=== PATIENT | male | born 1940 | race Caucasian/White ===

== ENCOUNTER 2017-05-19 21:41 | Inpatient (IN) | payer OTHER ==
[~2017-05-19] VITALS: Ht 172.7 cm; Wt 112.9 kg
--- NOTE | 2017-05-19 21:50 | NUR ---
PT TO ROOM9 BIBA FROM [facility] FOR C/O LOWER ABD PAIN 7/10 CONSTANT, NAUSEA x3HR. PT ARRIVED AAOx3, LAST BM 2 DAYS AGO WNL, PT DENIES CHEST PAIN,SOB, DENIES V/D,URINARY S/S. PT AFEBRILE. HX OF ALS,GI OBSTRACTION. MD RADHA AT BEDSIDE FOR PT EVAL.
--- NOTE | 2017-05-19 22:08 | ED GI/GU/ABDOMINAL COMPLAINT ---
History of Present Illness General Chief Complaint: Abdominal Pain/Flank Pain Stated Complaint: BIBA FOR ABD PAIN Source: patient, old records Exam Limitations: no limitations Vital Signs & Intake/Output Vital Signs & Intake/Output Vital Signs Date Time Temp Pulse Resp B/P B/P Pulse O2 O2 Flow FiO2 Mean Ox Delivery Rate 05/20 1425 97.9 92 20 152/90 97 05/20 1403 98.7 95 20 139/78 07 0630 97.8 79 20 140/88 93 Room Air 05/20 0219 98.1 73 20 146/88 94 Room Air 05/20 0147 97.7 72 18 141/75 95 Room Air 05/19 2220 95 Room Air 05/19 2149 96.8 69 18 192/77 95 Room Air ED Intake and Output 05/20 0000 05/19 1200 Intake Total Output Total Balance Patient 250 lb Weight Weight Reported by Patient Measurement Method Allergies Coded Allergies: No Known Allergies (05/20/17) Reconcile Medications Bisacodyl (Dulcolax) 10 MG SUPP.RECT 1 SUP RC DAILY PRN CONSTIPATION ( Reported) Dextran 70/Hypromellose (Artificial Tears) 1 EACH DROPERETTE 1 DROP DAILY PRN DRY EYE (Reported) Dextromethorphan HBr (Robitussin Pediatric Cough) 7.5 MG/5 ML SYRUP 10 ML PO DAILY PRN COUGH (Reported) Magnesium Hydroxide (Milk Of Magnesia) 400 MG/5 ML ORAL.SUSP 30 ML PO Q3D PRN CONSTIPATION (Reported) Mometasone Furoate (Nasonex) 50 MCG SPRAY.PUMP 1 SPRAY NASB DAILY PRN CONGESTION (Reported) Triage Note: PT TO ROOM9 BIBA FROM [facility] FOR C/O LOWER ABD PAIN 7/10 CONSTANT, NAUSEA x3HR. PT ARRIVED AAOx3, LAST BM 2 DAYS AGO WNL, PT DENIES CHEST PAIN,SOB, DENIES V/D,URINARY S/S. PT AFEBRILE. HX OF ALS,GI OBSTRACTION. MD RADHA AT BEDSIDE FOR PT EVAL. Triage Nurses Notes Reviewed? yes Onset: Abrupt Duration: hour(s):, constant, changing over time, continues in ED, getting worse Quality/Severity: sharpness, severe Location: periumbilical Radiation: no radiation Activities at Onset: rest HPI: Patient presents for evaluation of a severe periumbilical abdominal pain that began abruptly 3-4 hours prior to arrival while watching TV at home. Patient states he has had prior episodes of this pain secondary to "a blockage". He denies any associated vomiting or diarrhea but states he hasn't had a bowel movement in 2 days and cannot recall passing flatus. Past History Travel History Traveled to [place] past 21 day No Medical History Any Pertinent Medical History? see below for history Neurological: AMYOTROPHIC LAT SCLEROSIS Gastrointestinal: hiatal hernia, BOWEL OBSTRACTION Renal: urinary incontinence Surgical History Surgical History: non-contributory Psychosocial History What is your primary language [place] Tobacco Use: Never used Family History Hx Contributory? No Review of Systems Review of Systems Constitutional: Reports: no symptoms. EENTM: Reports: no symptoms. Respiratory: Reports: no symptoms. Cardiovascular: Reports: no symptoms. GI: Reports: see HPI. Genitourinary: Reports: no symptoms. Musculoskeletal: Reports: no symptoms. Skin: Reports: no symptoms. Neurological/Psychological: Reports: no symptoms. Hematologic/Endocrine: Reports: no symptoms. Immunologic/Allergic: Reports: no symptoms. All Other Systems: Reviewed and Negative Physical Exam Physical Exam Gastrointestinal: see below Comments: Gen.: Well-nourished, well-developed, no acute respiratory distress. Head: Normocephalic, atraumatic. Eyes: Normal inspection bilaterally Ears: Normal inspection bilaterally Nose: Normal inspection Throat/mouth : Moist mucosa Neck: Supple, full range of motion, no goiter Heart: Regular rate and rhythm, no murmurs rubs or gallops Lungs: Clear to auscultation bilaterally with normal air entry Chest: Nontender Back: Normal range of motion Abdomen: Soft, periumbilical tenderness, diffuse tympany, distended, decreased bowel sounds Extremities: Increased range of motion secondary to ALS Neurologic: Cranial nerves grossly intact, speech is clear Skin: warm and dry Psychiatric: Calm, cooperative, no apparent delusions or hallucinations Core Measures ACS in differential dx? No Severe Sepsis Present: No Septic Shock Present: No Progress Differential Diagnosis: kristopher bryant Plan of Care: Orders Procedure Date/time Status Nothing by Mouth 05/20 B Active Turn and Reposition 05/20 309 Active Skin Integrity Protocol 05/20 309 Active Vital Signs 05/20 244 Active Teach/Educate 05/20 244 Active Pain Treatment and Response 05/20 244 Active Nutritional Intake, Monitor 07/02 0244 Active Isolation 07/02 0244 Active Intake & Output 05/20 0244 Active Patient Care Conference 05/20 0244 Active Activity/Ambulation 05/20 0244 Active Pathway - chart 05/20 0114 Active NGT 05/20 0045 Active Patient Data 05/20 0041 Active Admit to inpatient 05/20 0009 Active VTE Mechanical Prophylaxis 05/20 UNK Active Vital Signs 05/20 UNK Active Intake & Output 05/20 UNK Active Activity/Ambulation 05/20 UNK Active MISSING MEDICATION FORM 05/20 UNK Active URINALYSIS 05/19 2208 Complete LIPASE 05/19 2208 Complete COMPREHENSIVE METABOLIC PANEL 05/19 2208 Complete CBC WITHOUT DIFFERENTIAL 05/19 2208 Complete EKG 05/19 2142 Active Current Medications Sig/Radha Start time Last Medication Dose Stop Time Status Admin Metoprolol Tartrate 25 MG BID 05/20 1139 AC 05/20 (Lopressor) 1403 Fenofibrate 145 MG DAILY 05/20 1000 AC 05/20 (Tricor) 1359 Phenol 2 SPRAY Q2P PRN 05/20 1000 AC 05/20 (Chloraseptic 1409 (Phenaseptic) Juliaetta) Oxcarbazepine 150 MG 0800 05/20 0800 AC 05/20 (Trileptal 150MG Tab) 1359 Heparin Sodium 5,000 UNIT Q8 05/20 0600 AC 05/20 (Porcine) 1403 Dextrose/Sodium 1,000 ML .[id number] 05/20 0115 AC 05/20 Chloride 1613 (D5W-1/2 Normal Saline 1000ML) Morphine Sulfate 4 MG Q4 HRS NEEDED PRN 05/20 0115 AC 05/20 (Morphine) 0705 Ondansetron HCl 4 MG Q8P PRN 05/20 0115 AC (Zofran) Laboratory Tests 05/20/17 0125: Urine Color YEL, Urine Clarity CLEAR, Urine pH 6.0, Ur Specific [place] 1.010, Urine Protein NEG, Urine Ketones NEG, Urine Nitrite NEG, Urine Bilirubin NEG, Urine Urobilinogen 0.2, Ur Leukocyte Esterase NEG, Ur Microscopic EXAM NOT REQUIRED, Urine Hemoglobin NEG, Urine Glucose NEG 05/19/17 2210: Anion Gap 11, Estimated GFR > 60, BUN/Creatinine Ratio 21.1, Glucose 173 H, Calcium 9.5, Total Bilirubin 0.5, AST 23, ALT 34, Alkaline Phosphatase 42, Total Protein 6.8, Albumin 4.4, Globulin 2.4, Albumin/Globulin Ratio 1.8, Lipase 96, CBC w Diff NO MAN DIFF REQ, RBC 5.04, MCV 90.9, MCH 30.3, RDW 15.0 H, MPV 10.0, Gran % 81.0 H, Lymphocytes % 14.2 L, Monocytes % 3.5, Eosinophils % 1.0, Basophils % 0.3, Absolute Granulocytes 5.8, Absolute Lymphocytes 1.0 L, Absolute Monocytes 0.3, Absolute Eosinophils 0.1, Absolute Basophils 0, PUBS MCHC 33.3 Diagnostic Imaging: Discussed w/RAD: Radiology Read, CT Scan. Radiology Impression: PATIENT: CRISTINO DELGADO PRESENT AGE: 77 PATIENT ACCOUNT NO: [id number] : 40 LOCATION: [facility] ORDERING PHYSICIAN: YARA GARCIA MD SERVICE DATE: 05/19/17 EXAM TYPE: CAT - CT ABD & PELVIS W IV CONTRAST EXAMINATION: CT ABDOMEN AND PELVIS WITH CONTRAST CLINICAL INFORMATION: Evaluate for bowel obstruction COMPARISON: Abdominal film same day TECHNIQUE: Multidetector volumetric imaging was performed of the abdomen and pelvis before and after the IV administration of 80 mL of Omnipaque 300 intravenous contrast. Sagittal and coronal reformatted images were obtained on the technologist's workstation. FINDINGS: Lung bases are grossly clear. Upper abdomen The liver and spleen are felt to be within normal limits. Kidneys are in the nephrographic phase. Probable cyst left kidney. The pancreas is within normal limits. Adrenal glands are normal. Aorta is calcified but not aneurysmal. There is no bulky adenopathy seen here. There is dilatation of proximal small bowel. This appears to be jejunum. Some mild mesenteric fluid associated. The duodenum is nondilated. The more distal ileum is decompressed. There is no mass identified here. No free fluid in the deep pelvis. There is some air and stool outlining large bowel. No adenopathy. IMPRESSION: Exam does demonstrate dilated proximal to mid small bowel. Findings may well suggest an evolving obstruction. As described more proximal jejunum and duodenum are nondilated and the distal small bowel is nondilated. Therefore an element of closed loop cannot be excluded. DICTATED BY: YARA HERNANDEZ MD DATE/TIME DICTATED:05/19/173 [employer] DEPUTY DIRECTOR:REBECCA DATE/TIME TRANSCRIBED:05/19/172340 CONFIDENTIAL, DO NOT COPY WITHOUT APPROPRIATE AUTHORIZATION. <Electronically signed in Other Vendor System> SIGNED BY: YARA HERNANDEZ MD 05/19/17 5537 Initial ED EKG: NSR, rate (72), nonspecific ST T wave chg, LAFB Comments: 05/20/2017 12:06:37 AM patient's case discussed with Dr. Gonzalez. Patient to be admitted for small bowel obstruction. Surgical PA paged. Departure Departure Disposition: HOME OR SELF CARE Condition: Stable Clinical Impression Primary Impression: Small bowel obstruction Referrals: LUCERO HUSTON,DONI Hamilton (PCP/Family) Departure Forms: Customer Survey General Discharge Information Admission Note Spoke With: SALOME HUSTON,LINDA Khalil Documentation of Exam: Documentation of any treatments & extenuating circumstances including Concerns Regarding Discharge (functional status, medication knowledge or non-compliance, living conditions, etc.) that warrant an admission rather than observation: Patient has a small bowel obstruction placing him at high risk of abdominal pain , vomiting, bowel perforation, peritonitis, sepsis and mortality. Patient has a prior history of similar small bowel obstructions secondary to prior abdominal surgery. I didn't feel he is a good candidate for outpatient management given the possible risks. I feel he now requires hospitalization for close clinical monitoring of abdominal exam and vital signs.
--- NOTE | 2017-05-19 22:18 | NUR ---
BLOOD DRAWN AND SENT TO LAB-[facility],URIAH,KEVIN,CABRERA, PT MEDICATED WITH MORPHINE PER EMAR FOR ABD PAIN 05/28. NS INFUSING PER EMAR. EKG DONE BY LION WRAY. PT SENT TO RAD BY RONNIE.
[2017-05-19 22:21] LABS: ABSOLUTE BASOPHIL COUNT 0 /CUMM (0.0-0.2); ABSOLUTE EOSINOPHIL COUNT 0.1 /CUMM (0.0-0.7); ABSOLUTE GRANULOCYTE CT 5.8 /CUMM (1.4-6.5); ABSOLUTE MONOCYTE COUNT 0.3 /CUMM (0.10-0.60); BASOPHIL % 0.3 % (0.0-2.0); HEMATOCRIT 45.8 % (42-52); MEAN CORPUSCULAR HGB 30.3 PG (27.0-31.0); MEAN CORPUSCULAR HGB CONC 33.3 G/DL (33.0-37.0); MEAN CORPUSCULAR VOLUME 90.9 FL (80.0-94.0); PLATELET COUNT 167 /CUMM (130-400); RED BLOOD CELL CT 5.04 /CUMM (4.70-6.10); WHITE BLOOD CELL COUNT 7.1 /CUMM (4.8-10.8)
--- NOTE | 2017-05-19 23:00 | RADIOLOGY REPORT ---
EXAMINATION: XR ABDOMEN MULTIPLE VIEWS CLINICAL INDICATION: Distention COMPARISON: None TECHNIQUE: 3 views are submitted FINDINGS: Cannot exclude free air. The patient's hand is overlying the right hemidiaphragm. There is dilatation of small bowel here. There is also some large bowel air which is nondilated. IMPRESSION: Dilatation of proximal mid small bowel. Evolving obstruction would need to be considered. Differential would include an ileus. As described I cannot exclude free air. The patient's hand overlies the right hemidiaphragm. And none of these films are labeled erect.
--- NOTE | 2017-05-19 23:29 | NUR ---
TO CT VIA STRETCHER
--- NOTE | 2017-05-19 23:30 | NUR ---
ABD XR INCONCLUSIVE, CT ORDERED PT ABD IS FIRM AND DISTENDED AND PT HAS HX OF BOWEL OBSTRUCTION.
--- NOTE | 2017-05-19 23:52 | CT SCAN REPORT ---
EXAMINATION: CT ABDOMEN AND PELVIS WITH CONTRAST CLINICAL INFORMATION: Evaluate for bowel obstruction COMPARISON: Abdominal film same day TECHNIQUE: Multidetector volumetric imaging was performed of the abdomen and pelvis before and after the IV administration of 80 mL of Omnipaque 300 intravenous contrast. Sagittal and coronal reformatted images were obtained on the technologist's workstation. FINDINGS: Lung bases are grossly clear. Upper abdomen The liver and spleen are felt to be within normal limits. Kidneys are in the nephrographic phase. Probable cyst left kidney. The pancreas is within normal limits. Adrenal glands are normal. Aorta is calcified but not aneurysmal. There is no bulky adenopathy seen here. There is dilatation of proximal small bowel. This appears to be jejunum. Some mild mesenteric fluid associated. The duodenum is nondilated. The more distal ileum is decompressed. There is no mass identified here. No free fluid in the deep pelvis. There is some air and stool outlining large bowel. No adenopathy. IMPRESSION: Exam does demonstrate dilated proximal to mid small bowel. Findings may well suggest an evolving obstruction. As described more proximal jejunum and duodenum are nondilated and the distal small bowel is nondilated. Therefore an element of closed loop cannot be excluded.
--- NOTE | 2017-05-20 00:01 | NUR ---
PER DR GARCIA REFERRED TO SURG BASED ON CT RESULT.
[2017-05-20] MEDS ORDERED: MILK OF MA400 MG/52 PO (00:12)
[2017-05-20] MEDS ORDERED: DULCOLAX10 M1 RC (00:13)
[2017-05-20] MEDS ORDERED: ROBITUSSIN7.5 MG/5 M PO (00:14)
[2017-05-20] MEDS ORDERED: NASONEX17 GM NASB (00:14)
[2017-05-20] MEDS ORDERED: ARTIFICIAL TEA1 EACH (00:15)
--- NOTE | 2017-05-20 00:21 | NUR ---
CONT TO REFUSE LAU AND HAS NOT YET VOIDED IN URINE BAG.
--- NOTE | 2017-05-20 00:44 | NUR ---
SURG PA AT BEDSIDE.
--- NOTE | 2017-05-20 00:57 | Admission Core Measures ---
Admission Lab Results I reviewed the following labs: Laboratory Tests 05/190 Chemistry Sodium (137 - 145 mmol/L) 142 Potassium (3.5 - 5.1 mmol/L) 4.4 Chloride (98 - 107 mmol/L) 109 H Carbon Dioxide (22 - 30 mmol/L) 22 Anion Gap (5 - 16) 11 BUN (9 - 20 mg/dL) 19 Creatinine (0.7 - 1.2 mg/dL) 0.9 Estimated GFR (>60 ml/min) > 60 BUN/Creatinine Ratio (7 - 25 %) 21.1 Glucose (65 - 99 mg/dL) 173 H Calcium (8.4 - 10.2 mg/dL) 9.5 Total Bilirubin (0.2 - 1.3 mg/dL) 0.5 AST (17 - 59 U/L) 23 ALT (21 - 72 U/L) 34 Alkaline Phosphatase (< 127 U/L) 42 Total Protein (6.3 - 8.2 g/dL) 6.8 Albumin (3.5 - 5.0 g/dL) 4.4 Globulin (1.9 - 4.2 gm/dL) 2.4 Albumin/Globulin Ratio (1.1 - 2.2 %) 1.8 Lipase (23 - 300 U/L) 96 Hematology CBC w Diff NO MAN DIFF REQ WBC (4.8 - 10.8 /CUMM) 7.1 RBC (4.70 - 6.10 /CUMM) 5.04 Hgb (14.0 - 18.0 G/DL) 15.3 Hct (42 - 52 %) 45.8 MCV (80.0 - 94.0 FL) 90.9 MCH (27.0 - 31.0 PG) 30.3 RDW (11.5 - 14.5 %) 15.0 H Plt Count (130 - 400 /CUMM) 167 MPV (7.4 - 10.4 FL) 10.0 Gran % (42.2 - 75.2 %) 81.0 H Lymphocytes % (20.5 - 51.1 %) 14.2 L Monocytes % (1.7 - 9.3 %) 3.5 Eosinophils % (0 - 5 %) 1.0 Basophils % (0.0 - 2.0 %) 0.3 Absolute Granulocytes (1.4 - 6.5 /CUMM) 5.8 Absolute Lymphocytes (1.2 - 3.4 /CUMM) 1.0 L Absolute Monocytes (0.10 - 0.60 /CUMM) 0.3 Absolute Eosinophils (0.0 - 0.7 /CUMM) 0.1 Absolute Basophils (0.0 - 0.2 /CUMM) 0 PUBS MCHC (33.0 - 37.0 G/DL) 33.3 Admission Meds I reviewed the following Meds: Current Medications Sig/Radha Start time Last Medication Dose Stop Time Status Admin Sodium Chloride 1,000 ML ONCE ONE 05/19 2215 AC 05/19 (Normal Saline 0.9%) 05/20 0454 2218 Acute Coronary Syndrome Inclusion Criteria ACS Diagnosis No Inpatient Core Measures LDL Reminder: If No, please order W/I first 24hr of stay Congestive Heart Failure Inclusion Criteria CHF Diagnosis No Cerebrovascular accident Inclusion Criteria CVA/TIA Diagnosis No Inpatient Core Measures Bedside Swallow Eval Reminder: If BSE failed, place ST order Antithrombotic Reminder: Order Antithrombotic Medication by end of day 2 Antithrombotic Reminder: Document Reason Antithrombotic Not ordered by end of day 2 AFIB/Flutter Reminder: If Present, add to problem list AFIB/Flutter Reminder: Order Anticoag Medication for pts with AFIB/Flutter Atherosclerosis Reminder: If Present, add to problem list LDL Reminder: If No, please order W/I first 24hr of stay PT Order Reminder: If No, please order Venous thromboembolism Inpatient Core Measures VTE Risk Factors: Age > 40, Immobility, paresis, Obesity No [facility] VTE prophylaxis d/t No contraindications No VTE Pharm Prophylaxis d/t No contraindications Inclusion Criteria - Per Current guidelines, there needs to be overlap - treatment for the first 5 days of Warfarin therapy. - Parenteral Anticoagulation (IV or SC) needs to be - given along with Warfarin therapy. VTE Diagnosis No VTE Type NONE VTE Confirmed by (Test) NONE Problem List As ranked by this Provider includes Assessment & Plan 1. Small bowel obstruction HOME MEDS Home Med List Bisacodyl (Dulcolax) 10 MG SUPP.RECT 1 SUP RC DAILY PRN CONSTIPATION ( Reported) Dextran 70/Hypromellose (Artificial Tears) 1 EACH DROPERETTE 1 DROP DAILY PRN DRY EYE (Reported) Dextromethorphan HBr (Robitussin Pediatric Cough) 7.5 MG/5 ML SYRUP 10 ML PO DAILY PRN COUGH (Reported) Magnesium Hydroxide (Milk Of Magnesia) 400 MG/5 ML ORAL.SUSP 30 ML PO Q3D PRN CONSTIPATION (Reported) Mometasone Furoate (Nasonex) 50 MCG SPRAY.PUMP 1 SPRAY NASB DAILY PRN CONGESTION (Reported)
--- NOTE | 2017-05-20 01:12 | History & Physical ---
RANDEE MUNOZ 05/20/17 0056: General Information and HPI MD Statement: I have seen and personally examined CRISTINO HUA and documented this H&P. The patient is a 77 year old M who presented with a patient stated chief complaint of [abdominal pain]. Source of Information: patient Exam Limitations: no limitations History of Present Illness: Mr. Hua 77-year-old male resident of an area retirement with past medical history significant for ALS, hypertension, previous bowel obstruction (resolved conservatively), and past surgical history of umbilical hernia repair was sent in by retirement complaining of increased abdominal pain and distention. He denies nausea or vomiting. There've been no changes in his urine although he is incontinent of urine and his last bowel movement was 2 days ago. He denies fever or chills at the retirement. He states that he has no problems eating and felt so this problem presently is related to overeating. CAT scan taken today demonstrates proximal to mid bowel distention consistent with evolving bowel obstruction. Allergies/Medications Allergies: Coded Allergies: No Known Allergies (05/20/17) Home Med list Bisacodyl (Dulcolax) 10 MG SUPP.RECT 1 SUP RC DAILY PRN CONSTIPATION ( Reported) Dextran 70/Hypromellose (Artificial Tears) 1 EACH DROPERETTE 1 DROP DAILY PRN DRY EYE (Reported) Dextromethorphan HBr (Robitussin Pediatric Cough) 7.5 MG/5 ML SYRUP 10 ML PO DAILY PRN COUGH (Reported) Magnesium Hydroxide (Milk Of Magnesia) 400 MG/5 ML ORAL.SUSP 30 ML PO Q3D PRN CONSTIPATION (Reported) Mometasone Furoate (Nasonex) 50 MCG SPRAY.PUMP 1 SPRAY NASB DAILY PRN CONGESTION (Reported) Past History Travel History Traveled to [place] past 21 day No Medical History Neurological: AMYOTROPHIC LAT SCLEROSIS EENT: NONE Cardiovascular: NONE Respiratory: NONE Gastrointestinal: hiatal hernia, BOWEL OBSTRACTION Renal: urinary incontinence Musculoskeletal: NONE Psychiatric: NONE Endocrine: NONE Surgical History Surgical History: hernia repair-umbilical Review of Systems Review of Systems Constitutional: Denies: no symptoms, see HPI, chills, diaphoresis, fever, malaise, weakness, unexplained weight loss. Exam & Diagnostic Data Last 24 Hrs of Vital Signs/I&O Vital Signs Date Time Temp Pulse Resp B/P B/P Pulse O2 O2 Flow FiO2 Mean Ox Delivery Rate 05/19 2220 95 Room Air 05/19 2149 96.8 69 18 192/77 95 Room Air Intake & Output 05/20 0800 05/20 0000 05/19 1600 Intake Total Output Total Balance Patient 250 lb Weight Weight Reported by Patient Measurement Method Physical Exam General Appearance Alert, Oriented X3, Mild Distress HEENT PERRLA Cardiovascular Regular Rate, Normal S1, Normal S2 Lungs Clear to Auscultation, Normal Air Movement Abdomen abdomen is obese and distended, hypoactive bowel sounds, mild diffuse tenderness to palpation, no evidence of peritonitis, Extremities pitting edema to bilateral lower extremities, DP pulses are intact Vascular Normal Pulses Last 24 Hrs of Labs/Mario: Laboratory Tests 05/19/172209: Anion Gap 11, Estimated GFR > 60, BUN/Creatinine Ratio 21.1, Glucose 173 H, Calcium 9.5, Total Bilirubin 0.5, AST 23, ALT 34, Alkaline Phosphatase 42, Total Protein 6.8, Albumin 4.4, Globulin 2.4, Albumin/Globulin Ratio 1.8, Lipase 96, CBC w Diff NO MAN DIFF REQ, RBC 5.04, MCV 90.9, MCH 30.3, RDW 15.0 H, MPV 10.0, Gran % 81.0 H, Lymphocytes % 14.2 L, Monocytes % 3.5, Eosinophils % 1.0, Basophils % 0.3, Absolute Granulocytes 5.8, Absolute Lymphocytes 1.0 L, Absolute Monocytes 0.3, Absolute Eosinophils 0.1, Absolute Basophils 0, PUBS MCHC 33.3 Diagnostic Data Other Results SERVICE DATE: 05/19/17 EXAM TYPE: CAT - CT ABD & PELVIS W IV CONTRAST EXAMINATION: CT ABDOMEN AND PELVIS WITH CONTRAST CLINICAL INFORMATION: Evaluate for bowel obstruction COMPARISON: Abdominal film same day TECHNIQUE: Multidetector volumetric imaging was performed of the abdomen and pelvis before and after the IV administration of 80 mL of Omnipaque 300 intravenous contrast. Sagittal and coronal reformatted images were obtained on the technologist's workstation. FINDINGS: Lung bases are grossly clear. Upper abdomen The liver and spleen are felt to be within normal limits. Kidneys are in the nephrographic phase. Probable cyst left kidney. The pancreas is within normal limits. Adrenal glands are normal. Aorta is calcified but not aneurysmal. There is no bulky adenopathy seen here. There is dilatation of proximal small bowel. This appears to be jejunum. Some mild mesenteric fluid associated. The duodenum is nondilated. The more distal ileum is decompressed. There is no mass identified here. No free fluid in the deep pelvis. There is some air and stool outlining large bowel. No adenopathy. IMPRESSION: Exam does demonstrate dilated proximal to mid small bowel. Findings may well suggest an evolving obstruction. As described more proximal jejunum and duodenum are nondilated and the distal small bowel is nondilated. Therefore an element of closed loop cannot be excluded. DICTATED BY: YARA HERNANDEZ MD DATE/TIME DICTATED:05/19/172340 THIRD HELPER:REBECCA DATE/TIME TRANSCRIBED:05/19/172340 Assessment/Plan Assessment: Mr. Hua is a 77-year-old male resident of area retirement who presents with abdominal pain and distention for [address] CAT scan demonstrates evolving small bowel obstruction which may possibly be a closed loop obstruction. The scans were reviewed by Dr. Mcmahon who agrees that the patient should be admitted to the surgical service given his relatively stable medical condition for conservative management of this bowel obstruction. This management will consist of IV fluids, placement of NG tube at this time, serial abdominal exams. Although there has been no nausea or vomiting associated with this current episode given his history of ALS and immobility, he is at high risk for aspiration if he does vomit. The patient understands this and is in agreement to NG tube placement at this time. Plan Admit to Dr. Mcmahon Place NG tube in emergency room IV fluids Serial abdominal exams Dr. Mcmahon will evaluate the patient in the morning. As Ranked By This Provider Problem List: 1. Small bowel obstruction Core Measures/Miscellaneous Acute Coronary Syndrome ACS Diagnosis: No Cerebrovascular Accident CVA/TIA Diagnosis: No Congestive Heart Failure CHF Diagnosis: No VTE (View Protocol) VTE Risk Factors: Age > 40, Immobility, paresis, Obesity No [facility] VTE prophylaxis d/t: No contraindications No VTE Pharm Prophylaxis d/t: No contraindications VTE Diagnosis: No VTE Type: NONE VTE Confirmed by (Test): NONE Sepsis (View Protocol) Severe Sepsis Present: No Septic Shock Septic Shock Present: No Miscellaneous Documentation Attending Case Discussed With: LINDA MCMAHON MD Primary Care Physician: DONI BARKER MD Patient sees these Specialists None Level of Patient Care: General Medicine LINDA MCMAHON MD 05/20/17 1055: Attending MD Review Statement Attending Statement Attending MD Statement: examined this patient, agreed w/resident/PA/HORTICULTURAL AGENT, reviewed images Attending Assessment/Plan: as above. sbo unclear etiology. patient binged on chick peas last two days, ? ward plug. he is comfortable after NG decompression. observe. unusual that he never had abdominal surgery. furthermore, the bowel gas pattern is not common finding with sbo (large and small bowel gas/fluid levels). ? motility issue associated with ALS
--- NOTE | 2017-05-20 01:18 | NUR ---
Emergency Dept UC Admit Note: To be admitted to [facility] by DR. MCMAHON with SBO as the diagnosis, to [id number] location. Nursing Cheesemaker and admitting notified 05/20/17 at 0052
--- NOTE | 2017-05-20 01:45 | NUR ---
NGT INSERTED INTO RT NARE PT PRASANTH WELL SCANT AMT OF DRAINAGE WITH LWCS. ABD UNCHANGED INCONTINENT OF URINE. AFTER URI BAG REMOVED. PSEC X 1 TUBE SENT FROM URI BAG. VSS. REPORT TO DAE. PT EDUARDO AREA AND COCCYX CLEAR WITHOUT REDNESS OPEN AREAS ETC.
--- NOTE | 2017-05-20 01:47 | NUR ---
PER FLOOR ONLY 1 TECH WHO IS ON BREAK .
[2017-05-20 02:19] VITALS: BP 146/88
--- NOTE | 2017-05-20 03:16 | NUR ---
RECEIVED PT FROM ER AT 0215. A/O X3. VSS. ABDOMEN DISTENDED AND FIRM. NGT TUBE TO R NARE WITH MINIMAL OUTPUT. SCATTERED HYPOACTIVE BS HEARD IN ALL QUADS. SKIN INT. IV MORPHINE ADMINISTERED FOR PAIN 5/10 IN LOWER ABD QUADS. FALL PREC IN PLACE. RUE CONTRACTED. ALPS PLACED. IV FLUIDS INFUSING. WILL MONITOR.
[2017-05-20 06:30] VITALS: BP 140/88
--- NOTE | 2017-05-20 08:09 | PN- General Surgery ---
See Addendum Subjective Subjective: No acute events reported since patient brought to general surgical floor. Has NGT in place. No output documented. Patient is without complaints presently but is not communicating verbally. He does open his eyes in response to verbal stimuli. Objective Vital Signs and I&Os Vital Signs Date Time Temp Pulse Resp B/P B/P Pulse O2 O2 Flow FiO2 Mean Ox Delivery Rate 05/20 0630 97.8 79 20 140/88 93 Room Air 05/20 0219 98.1 73 20 146/88 94 Room Air 05/20 0147 97.7 72 18 141/75 95 Room Air 05/19 2220 95 Room Air 05/19 2149 96.8 69 18 192/77 95 Room Air Intake & Output 05/20 1600 05/20 0800 05/20 0000 05/19 1600 05/19 0800 05/19 0000 Intake Total 350 Output Total 200 Balance 150 Intake, IV 350 Number 0 Bowel Movements Output, 200 Gastric Drainage Patient 250 lb 250 lb Weight Weight Estimated Reported by Patient Measurement Method Physical Exam: General: No verbal communication, opens eyes to verbal stimuli Cardiac: RRR, s1s2 Pulm: CTA bilaterally Abd: Distended, NGT with no output on low wall suction Extremities: Contracted, unable to assess motor function, skin warm and well pefused. Calves soft and non-tender Assessment/Plan Assessment/Plan This is a 77 year old male admitted to hospital with c/o abdominal pain and CT scan findings suggestive of a small bowel obstruction and hiatal hernia. PMH significant for ALS and htn. -PA chest and abdominal multiview xray now, check placement of ngt -Will administer home meds when ngt placement is verified -Continue iv fluids for now -Continue npo -Will consider pt evaluation, pt at baseline able to stand and sit in chair -Will discuss poc with Dr. Gonzalez Core Measures/Miscellaneous Venous Thromboembolism VTE Risk Factors: Age > 40 VTE Contraindications: No Contraindications VTE Diagnosis: No VTE Type: NONE VTE Confirmed by (Test): NONE Beta Douglas Is Beta Douglas a Home Med? Yes If Yes, Was This Ordered Today? Yes Antibiotics Is Patient on Antibiotics? No
--- NOTE | 2017-05-20 09:28 | RADIOLOGY REPORT ---
EXAMINATION: XR ABDOMEN WITH PA CHEST CLINICAL INDICATION: Check placement of NG tube COMPARISON: Abdominal radiograph 05/19/[address] abdomen pelvis 05/19/2017. TECHNIQUE: AP supine chest and AP supine and [id number] multiple decubitus views of the abdomen obtained. FINDINGS: The patient's hand overlies the right lower chest limiting detail. A tube overlies the upper chest with the tip at T3 presumably esophageal location of a NG tube. Repositioning recommended. The visualized lungs are clear. Multiple air-fluid levels are seen in the stomach, small and large bowel, similar to increased in comparison to prior CT. No obvious pneumoperitoneum which is better evaluated with upright or left lateral decubitus radiograph. Contrast is seen in the bladder from prior CT. IMPRESSION: Enteric tube terminates in the upper chest and repositioning is needed. Persistent small and large bowel dilatation as noted on prior CT. This result was discussed with Jacque Montero by telephone at 925 on 05/20/2017 and it was ascertained that the content and urgency of the report was understood at the time of direct communication.
--- NOTE | 2017-05-20 10:48 | RADIOLOGY REPORT ---
EXAMINATION: XR PORTABLE ABDOMEN CLINICAL INFORMATION: Small bowel obstruction. Assess nasogastric tube placement COMPARISON: Study from earlier today TECHNIQUE: AP view of the abdomen. FINDINGS: Persistent small bowel dilatation seen. Stomach is partially decompressed. There is a subtle linear density projecting in the region of GE junction which could represent a very small portion of the nasogastric tube although this is not well delineated on the study. IMPRESSION: Persistent small bowel gaseous distention. There is a suggestion of possible nasogastric tube tip in the region of the GE junction but this is not well assessed on the study. If this is the tip of the side-port is likely above the GE junction and could be advanced. Follow-up film of the basilar chest may be better able to delineate this due to patient body habitus
[2017-05-20 14:25] VITALS: BP 152/90
--- NOTE | 2017-05-20 22:40 | Patient Discharge Instructions ---
Discharge Instructions General Discharge Information You were seen/treated for: Abdominal pain, distension, bowel obstruction You had these procedures: Medical management with NGT decompression and bowel rest Watch for these problems: Increasing pain, inability to pass gas, inability to move bowels. Persistent nausea and vomitting. Abdominal distension, worsening. Diet Continue normal diet: Yes Recommended Diet: Regular no added salt Activity Full Activity/No Limits: No Activity Self Limited: Yes Acute Coronary Syndrome Inclusion Criteria At DC or during hospital stay patient has or had the following: ACS DIAGNOSIS No Discharge Core Measures Meds if any: Prescribed or Continued at Discharge Meds if any: NOT Prescribed or Continued at Discharge Congestive Heart Failure Inclusion Criteria At DC or during hospital stay patient has or had the following: CHF DIAGNOSIS No Discharge Core Measures Meds if any: Prescribed or Continued at Discharge Meds if any: NOT Prescribed or Continued at Discharge Cerebrovascular accident Inclusion Criteria At DC or during hospital stay patient has or had the following: CVA/TIA Diagnosis No Discharge Core Measures Meds if any: Prescribed or Continued at Discharge Meds if any: NOT Prescribed or Continued at Discharge Venous thromboembolism Inclusion Criteria VTE Diagnosis No VTE Type NONE VTE Confirmed by (Test) NONE Discharge Core Measures - Per Current guidelines, there needs to be overlap - treatment for the first 5 days of Warfarin therapy. - If discharged on Warfarin prior to 5 days of - overlap therapy, the patient will need to be - assessed for post discharge needs including - *Post discharge parental anticoagulation - *Warfarin and/or parental anticoagulation education - *Follow up date to check INR post discharge At least 5 days overlap therapy as Inpatient No Meds if any: Prescribed or Continued at Discharge Note: Overlap Therapy is Warfarin and Anticoagulant Meds if any: NOT Prescribed or Continued at Discharge
[2017-05-20 22:52] VITALS: BP 128/62
[2017-05-21 06:40] VITALS: BP 138/64
--- NOTE | 2017-05-21 07:41 | PN- General Surgery ---
See Addendum Subjective Subjective: HD#2 SBO NO MAJOR ISSUES OVERNIGHT GRANT JULIUS, SOB, STATES HE FEELS LESS BLOATED TODAY REMAINS RELATIVELY PAIN FREE MODERATE NGT OUTPUT AFTER CLAMPING Objective Vital Signs and I&Os Vital Signs Date Time Temp Pulse Resp B/P B/P Pulse O2 O2 Flow FiO2 Mean Ox Delivery Rate 05/21 0640 98.1 75 20 138/64 95 Room Air 05/20 2252 99.8 86 20 128/62 94 Room Air 05/20 2155 99.6 86 20 128/62 05/20 1425 97.9 92 20 152/90 97 05/20 1403 98.7 95 20 139/78 Intake & Output 05/21 0805/21 0000 05/20 1600 05/20 0800 05/20 0000 05/19 1600 Intake Total 30 650 350 Output Total 250 50 550 200 Balance -220 -50 100 150 Intake, IV 600 350 Intake, Oral 30 Intake, Other 50 Number 1 0 Bowel Movements Output, 250 50 450 200 Gastric Drainage Output, Urine 100 Patient 250 lb 250 lb Weight Weight Estimated Reported by Patient Measurement Method Physical Exam: CV: RRR LUNGS: CLEAR ABD: SOFT, SCANT BS MILD TENDERNESS TO PALP ALL FOUR QUADRANTS NGT: 250CC DARK DRAINAGE OVERNIGHT EXT: WARM, DISTAL PULSES INTACT Assessment/Plan Assessment/Plan SURGICALLY UNCHANGED +BM PLAN F/U AM LABS REPEAT ABDOMINAL XRAY PENDING CONT CURRENT PLAN Core Measures/Miscellaneous Venous Thromboembolism VTE Risk Factors: Age > 40 VTE Contraindications: No Contraindications VTE Diagnosis: No VTE Type: NONE VTE Confirmed by (Test): NONE Beta Douglas Is Beta Douglas a Home Med? Yes If Yes, Was This Ordered Today? Yes Antibiotics Is Patient on Antibiotics? No
--- NOTE | 2017-05-21 08:50 | RADIOLOGY REPORT ---
EXAMINATION: XR ABDOMEN WITH PA CHEST CLINICAL INDICATION: Small bowel obstruction. Nasogastric tube. COMPARISON: 01/18/2017 TECHNIQUE: Frontal view of the chest. 2 views, 3 images of the abdomen. FINDINGS: The lungs are well expanded. Evaluation of the right lung base is limited as the patient's hand overlies this area. No definite consolidation. No pneumothorax. The cardiomediastinal silhouette is unchanged. The enteric tube terminates in the stomach. No abnormally dilated loops of bowel are seen. This is an improvement from the prior study. Scattered gas throughout the small and large bowel. Degenerative changes of the spine. No free air on the upright view. No air-fluid levels are seen. IMPRESSION: No abnormally dilated loops of bowel are seen. Enteric tube terminates in the stomach.
[2017-05-21 14:45] VITALS: BP 125/70
[2017-05-21 21:40] VITALS: BP 140/70
[2017-05-22 06:51] VITALS: BP 130/80
--- NOTE | 2017-05-22 10:06 | PN- General Surgery ---
See Addendum Subjective Subjective: Awake, alert No complaints overnight Pain free Tolerating clears and would like to eat +flatus, no bm Objective Vital Signs and I&Os Vital Signs Date Time Temp Pulse Resp B/P B/P Pulse O2 O2 Flow FiO2 Mean Ox Delivery Rate 05/22 0841 132/78 05/22 0651 97.3 64 20 130/80 95 Room Air 05/21 2219 97.6 20 95 Room Air 05/21 2140 78 140/70 05/21 2132 78 140/70 05/21 1445 97.7 80 20 125/70 98 Intake & Output 05/22 1600 05/22 0800 05/22 0000 05/21 1600 05/21 0800 05/21 0000 Intake Total 700 1200 550 30 Output Total 500 276 300 250 50 Balance 200 924 250 -220 -50 Intake, IV 600 600 500 Intake, Oral 100 600 50 30 Number 1 Bowel Movements Output, 300 250 50 Gastric Drainage Output, Urine 500 276 Patient 249 lb Weight Physical Exam: General: alert and oriented times three Chest: clear anteriorly bilaterally, RRR Abd: softly distended, hypoactive bs but present, nontender even to deep palpation all 4 quadrants Ext: warm, no edema Assessment/Plan Assessment/Plan 77 yo male admitted with sbo - resolving, ngt removed yesterday now tolerating clears +bowel function - ?advance diet and dc home Will discuss with Dr Hargrove Core Measures/Miscellaneous Venous Thromboembolism VTE Risk Factors: Age > 40 VTE Contraindications: No Contraindications VTE Diagnosis: No VTE Type: NONE VTE Confirmed by (Test): NONE Beta Douglas Is Beta Douglas a Home Med? Yes If Yes, Was This Ordered Today? Yes Antibiotics Is Patient on Antibiotics? No
--- NOTE | 2017-05-22 11:40 | Discharge Summary ---
Visit Information Visit Dates Admission Date: 05/20/17 Discharge Date: 05/22/17 Hospital Course Course Attending Physician: SALOME HUSTON,LINDA Khalil Primary Care Physician: LUCERO HUSTON,DONI Hamilton Hospital Course: Patient admitted 2 days ago with signs and symptoms suggestive of bowel obstruction NG tube was placed he improved rapidly yesterday NG tube was removed after about one day this morning he's been passing gas his tolerating diet he's hungry the plan is to advance his diet to regular and if he tolerates it we will discharge him back to his rehabilitation facility in the meantime no signs of bleeding infection or ischemia. On physical exam his abdomen is a little distended but he says that back to normal and it's not tender Allergies: Coded Allergies: No Known Allergies (05/20/17) Disposition Summary Disposition Principal Diagnosis: Bowel obstruction Additional Diagnosis: None acute Discharge Disposition: SNF Discharge Instructions General Discharge Information Code Status: Full Code Patient's Diet: Gradually resume usual as tolerated avoid large portions of chewy high fiber food or candy Patient's Activity: Avoid heavy lifting or other straining Follow-Up Instructions/Appts: Next week and surgeon's office or sooner if symptoms recur. Medications at Discharge Discharge Medications: Continue taking these medications: Magnesium Hydroxide (Milk Of Magnesia) 400 MG/5 ML ORAL.SUSP 30 Milliliters ORAL Every 3 days as needed for CONSTIPATION Bisacodyl (Dulcolax) 10 MG SUPP.RECT 1 Suppository RECTAL DAILY as needed for CONSTIPATION Dextromethorphan HBr (Robitussin Pediatric Cough) 7.5 MG/5 ML SYRUP 10 Milliliters ORAL DAILY as needed for COUGH Mometasone Furoate (Nasonex) 50 MCG SPRAY.PUMP 1 Baker Both sides of nose DAILY as needed for CONGESTION Dextran 70/Hypromellose (Artificial Tears) 1 EACH DROPERETTE 1 DROP DAILY as needed for DRY EYE Copies To: HUANG HUSTON,SHELLI Figueroa
[2017-05-22 14:39] VITALS: BP 132/78
[2017-05-22 15:22] VITALS: BP 124/70
== END 2017-05-22 16:05 | DRG 389 ==
LOC: ERH 21:41 → ERHI 05-20 00:09 → 2NA 05-20 00:09 → ENRESERV 05-20 01:06 → 2NA 05-20 02:18 → ENPENDDIS 05-22 13:34 → 2NA 05-22 16:05
PROVIDERS: Emergency Medicine; ADMIT Surgery
DX: K56.60 Unspecified intestinal obstruction (principal); G12.21 Amyotrophic lateral sclerosis; I10 Essential (primary) hypertension; R32 Unspecified urinary incontinence; K44.9 Diaphragmatic hernia without obstruction or gangrene
CPT/HCPCS: 2NAP; 36415; 74000; 74020; 74022; 74177; 81003; 82436; 93005; 93010; 96374; 97110-GO; 97112-GO; 97161-GP; J1644; J7042